=== PATIENT | male | born 1930 | race Caucasian/White ===

== ENCOUNTER 2017-11-28 23:59 | Inpatient (IN) | payer MEDICARE, MEDICAID ==
--- NOTE | 2017-11-29 00:44 | ED Physician Chart ---
ED Chief Complaint/HPI - Patient Information Date Seen:: 11/29/17 Time Seen:: 00:00 Chief Complaint:: back pain History of Present Illness:: 87 yr old male s/p fall 2 wks ago with wedge fx Allergies:: Allergies Allergy/AdvReac Type Severity Reaction Status Date / Time No Known Allergies Allergy Verified 11/29/17 00:18 Vitals:: Vital Signs - 8 hr 11/29/17 00:05 Temp 97.9 F HR 80 RR 16 BP 140/69 O2 Sat % 96 Historian:: Medical Records ED Review of Systems - Review of Systems General/Constitutional: No fever Skin: No skin lesions Head: No headache Eyes: No loss of vision ENT: No earache Neck: No neck pain Cardio Vascular: No chest pain Pulmonary: No SOB GI: No nausea G/U: No dysuria Musculoskeletal: Bone or joint pain, Muscle pain Endocrine: No polyuria Psychiatric: No prior psych history Hematopoietic: No lymphadenopathy Allergic/Immuno: No angioedema Neurological: No paresthesia (pt very angry appearing and demanding) ED Past Medical History - Past Medical History Obtainable: No Past Medical History: Arthritis Family History: Other Family Medical History - Family Member Mother History Unknown: Yes ED Septic Shock - <6hrs of presentation: Vital Signs: Vital Signs - 8 hr 11/29/17 00:05 Temp 97.9 F HR 80 RR 16 BP 140/69 O2 Sat % 96
[2017-11-29 01:19] LABS: % BASOPHILS 0.7 % (0.0-2.0); % EOSINOPHILS 2.6 % (0.0-5.0); % LYMPHOCYTES 18.5 % (20.0-50.0); % NEUTROPHILS 70.2 % (40.0-80.0); BASOPHILE ABSOLUTE 0.1 Th/cumm (0-0.2); EOSINOPHILE ABSOLUTE 0.2 Th/cmm (0.1-0.4); HEMATOCRIT 41.5 % (41.0-60); HEMOGLOBIN 13.8 gm/dL (12-16); LYMPHOCYTE ABSOLUTE 1.5 Th/cmm (1.5-3.0); MEAN CELL VOLUME 92.7 fl (80-99); MEAN CORPUSCULAR HEMOGLOBIN 30.8 pg (27.0-31.0); MEAN CORPUSCULAR HGB CONC 33.2 pg (28.0-36.0); MEAN PLATELET VOLUME 8.4 fl; MONOCYTE ABSOLUTE 0.7 Th/cmm (0.3-1.0); NEUTROPHILE ABSOLUTE 5.7 Th/cmm (1.8-8.0); PLATELET COUNT 293 Th/cmm (150-400); RED BLOOD COUNT 4.47 Mil/cmm (3.80-5.80); RED CELL DISTRIBUTION WIDTH 12.5 % (11.5-20.0); WHITE BLOOD COUNT 8.2 Th/cmm (4.8-10.8)
[2017-11-29 01:26] LABS: ALB/GLOB RATIO 1.3 (1.0-1.8); ALBUMIN 3.8 gm/dL (4.2-5.5); ALKALINE PHOSPHATASE 84 U/L (34-104); ANION GAP 12.8 (7.0-16.0); BILIRUBIN,TOTAL 0.7 mg/dL (0.3-1.0); BUN - UREA NITROGEN 16 mg/dL (7-25); CALCIUM SERUM 9.2 mg/dL (8.6-10.3); CARBON DIOXIDE 18.8 mEq/L (21.0-31.0); CHLORIDE 103 mEq/L (98-107); CREATININE - SERUM 0.7 mg/dL (0.7-1.3); GLUCOSE 145 mg/dL (70-105); POTASSIUM SERUM 3.6 mEq/L (3.5-5.1); SGOT 13 U/L (13-39); SGPT/ALT 13 U/L (7-52); SODIUM SERUM 131 mEq/L (136-145); TOTAL PROTEIN,SERUM 6.8 gm/dL (6.0-8.3)
[2017-11-29] MEDS ORDERED: Sodium Chloride 0.9% 1,000 ML IV ONE (02:13)
[2017-11-29 02:28] LABS: URINE MICROSCOPIC INDICATED? YES; URINE SOURCE CLEAN C
[2017-11-29 03:21] LABS: URINE BILIRUBIN NEGATIVE (NEGATIVE); URINE BLOOD NEGATIVE (NEGATIVE); URINE GLUCOSE (UA) 250 mg/dL (NEGATIVE); URINE KETONE NEGATIVE (NEGATIVE); URINE LEUKOCYTE ESTERASE NEGATIVE (NEGATIVE); URINE NITRATE NEGATIVE (NEGATIVE); URINE PROTEIN NEGATIVE (NEGATIVE); URINE UROBILINOGEN 0.2 E.U./dL (0.2 - 1.0)
[2017-11-29 03:33] LABS: URINE CLARITY CLEAR (CLEAR); URINE COLOR YELLOW
[2017-11-29 03:34] LABS: URINE BACTERIA NONE SEEN /hpf (NONE SEEN); URINE EPITHELIAL CELLS NONE SEEN /lpf (FEW); URINE RBC NONE SEEN /hpf (0-5); URINE WBC NONE SEEN /hpf (0-5)
[2017-11-29] MEDS ORDERED: Non-Formulary Item 1 EA (Acetaminophen [Acetaminophen Er] 650 MG) PO PRN ×2 (07:07)
[2017-11-29] MEDS ORDERED: Non-Formulary Item 1 EA (Ascorbate Calcium [Vitamin C] 500 MG) PO SCH (09:00)
[2017-11-29] MEDS: Calcium Carb/Vit D 500 mg/200 U Tab PO SCH (10:15)
[2017-11-29] MEDS: Hydrocodone/APAP 10 mg/325 mg Tab PO PRN ×2 (10:15→16:23)
--- NOTE | 2017-11-30 04:07 | History & Physical ---
ADMIT DATE: 11/29/2017 CHIEF COMPLAINT: Fall with severe low back pain. HISTORY OF PRESENT ILLNESS: The patient is an 87-year-old male admitted from the Emergency Room to telemetry floor of [facility] due to status post fall with a wedge compression fracture in the lumbar spine. I have not seen the official report on the computer yet, but this worrying information communicated by the ER physician to me. The patient is somewhat confused, agitated from time to time. He does have degenerative disk disease, degenerative joint disease, age-related chronic pain syndrome. Lab mondragon, his sodium is 131, blood sugar 145. PAST MEDICAL HISTORY: Includes degenerative joint disease, degenerative disk disease, hypertension, failure to thrive, weakness, hyperlipidemia, chronic pain syndrome, osteoporosis, constipation. PAST SURGICAL HISTORY: Denies significant past surgical history. MEDICATIONS: See medication reconciliation list. ALLERGIES: No known drug allergies. FAMILY HISTORY: Noncontributory per age. SOCIAL HISTORY: The patient smoked before, quit years ago. Denies alcohol or IV drug abuse. REVIEW OF SYSTEMS: As per HPI: GENERAL: Well-developed, thin male in no acute distress. SKIN: Warm and dry. Vital signs are basically stable. HEENT: Normocephalic, atraumatic. Pupils equal, round, react to light and accommodation. CHEST: Symmetrical. LUNGS: Clear to auscultation bilaterally. CARDIAC: Normal sinus rhythm. S1, S2. ABDOMEN: Benign, soft, nontender. EXTREMITIES: No clubbing, cyanosis or edema bilaterally . NEUROLOGIC: Unremarkable. LABORATORY DATA: Reviewed as seen from the computer significant for hyponatremia of sodium 131. ASSESSMENT AND PLAN: 1. Status post fall a week ago with progressive worsening of low back pain and radiographic evidence of wedge compression fracture: Orthopedic consultation request greatly appreciated and fall precaution be exercised. 2. Hyponatremia: Rule out syndrome of inappropriate antidiuretic hormone. 3. Chronic pain syndrome: Adjust pain medications as needed. 4. Degenerative joint disease and degenerative disk disease, age-related. 5. History of constipation and decubitus ulcer. 6. History of hypertension and hyperlipidemia. 7. DVT prophylaxis. JOB# [id number]
--- NOTE | 2017-11-30 08:07 | Diagnostic Imaging Report ---
Exam: Lumbar sacral spine HISTORY: Pain Findings: Multiple views of the lumbar sacral spine portably at 0107 hours reviewed, no prior studies available for comparison. The study demonstrates severe degenerative osteoporotic osteophytic changes with extensive compression fractures of the L3, L2, L1, and T12 vertebrae, acuity is is unknown. Degenerative osteoarthritic changes with narrowing of the L4-L5 L5-S1 intervertebral disc spaces are noted. There is calcification of abdominal aorta. Superimposed ileus is noted. IMPRESSION: Multiple level compression fractures throughout the lumbar spine Degenerative osteophytic changes, or osteoarthritic narrowing of the L4-L5 L5-S1 intervertebral disc spaces. Clinical correlation recommended.
[2017-11-30] MEDS: Lactobacillus Rhamnosus GG 15 Billion CFU CAP.SPRINK PO SCH (09:48)
[2017-11-30] MEDS: Multivitamin w/ Minerals Tab PO SCH (09:48)
[2017-11-30] MEDS: Lactulose 10 Gm/15 mL 30mL UDC PO SCH (09:48)
[2017-11-30] MEDS: Calcium Carb/Vit D 500 mg/200 U Tab PO SCH (09:48)
--- NOTE | 2017-11-30 18:57 | ED Physician Chart ---
ED Chief Complaint/HPI - Patient Information Date Seen:: 11/30/17 Time Seen:: 18:56 Allergies:: Allergies Allergy/AdvReac Type Severity Reaction Status Date / Time No Known Allergies Allergy Verified 11/29/17 00:18 I WAS REQUESTED BY THE HOUSE CHARGE NURSE TO WRITE A PRESCRIPTION FOR AN AGITATED PATIENT WHO IS STRIKING PEOPLE WITH HIS CANE AND PUNCHING PEOPLE. I EVALUATED THE PATIENT HE WAS AWAKE AND ALERT AND IN NO RESPIRATORY DISTRESS. I WENT AHEAD AND PUT IN AN ORDER FOR ATIVAN 0.5 MG IM NEEDED TO CONTROL HER COMBATIVE BEHAVIOR AND AGITATION. Family Medical History - Family Member Mother History Unknown: Yes ED Labs/Radiology/EKG Results - Lab Results Results: Laboratory Tests 11/29/17 11/29/17 11/29/17 00:50 00:50 01:20 WBC 8.2 RBC 4.47 Hgb 13.8 Hct 41.5 MCV 92.7 MCH 30.8 MCHC Differential 33.2 RDW 12.5 Plt Count 293 MPV 8.4 Neutrophils % 70.2 Lymphocytes % 18.5 L Monocytes % 8.0 Eosinophils % 2.6 Basophils % 0.7 Sodium 131 L Potassium 3.6 Chloride 103 Carbon Dioxide 18.8 L Anion Gap 12.8 BUN 16 Creatinine 0.7 Est GFR ( Amer) TNP Est GFR (Non-Af Amer) TNP BUN/Creatinine Ratio 22.9 Glucose 145 H Calcium 9.2 Total Bilirubin 0.7 AST 13 ALT 13 Alkaline Phosphatase 84 Total Protein 6.8 Albumin 3.8 L Globulin 3.0 Albumin/Globulin Ratio 1.3 Urine Source CLEAN C Urine Color YELLOW Urine Clarity CLEAR Urine pH 7.0 Ur Specific [place] 1.010 Urine Protein NEGATIVE Urine Glucose (UA) 250 H Urine Ketones NEGATIVE Urine Blood NEGATIVE Urine Nitrate NEGATIVE Urine Bilirubin NEGATIVE Urine Urobilinogen 0.2 Ur Leukocyte Esterase NEGATIVE Urine RBC NONE SEEN Urine WBC NONE SEEN Ur Epithelial Cells NONE SEEN Urine Bacteria NONE SEEN ED Septic Shock - . Is Septic Shock (SBP<90, OR Lactate>4 mmol\L) present?: No ED Discharge Plan - Patient Disposition Admit/Discharge/Transfer: Acute Care w/in this hosp
--- NOTE | 2017-12-01 05:09 | Progress Notes ---
DATE: 11/30/2017 SUBJECTIVE: The patient was very confused, agitated earlier. OBJECTIVE: VITAL SIGNS: Basically stable. HEENT: Normocephalic, atraumatic. Pupils equal, round, reactive to light and accommodation. CHEST: Symmetrical. LUNGS: Basically clear to auscultation bilaterally. HEART: Normal sinus rhythm, S1 and S2. ABDOMEN: Benign, soft, nontender. EXTREMITIES: No clubbing, cyanosis, or edema. NEUROLOGIC: Unremarkable. DIAGNOSTIC STUDIES: X-ray of lumbar spine revealed multiple level compression fractures throughout the lumbar spine. ASSESSMENT AND PLAN: 1. Altered level of consciousness due to metabolic encephalopathy, dementia. 2. Agitation: Observe closely. 3. Noncompliance: Education provided with some effect. 4. Status post fall with multiple compression fracture in the lumbar spine. 5. Hyponatremia: We will repeat BMP in the morning. 6. Chronic pain syndrome: Multifactorial. 7. History of constipation and decubitus ulcer. 8. Hypertension, improving. 9. Hyperlipidemia. 10. DVT prophylaxis. JOB# [id number]
--- NOTE | 2017-12-01 07:33 | Consultation ---
DATE OF CONSULTATION: 12/01/2017 PSYCHIATRIC CONSULT PATIENT'S AGE: 87. SEX: Male. PHYSICIAN: Dr. Chavez. WAIST FITTER: Elias Kim MD, MPH TYPE OF THE REPORT: Psychiatric consult. REASON FOR THE CONSULT: Agitation and uncooperative. HISTORY OF PRESENT ILLNESS: The patient is an 87-year-old male who was admitted to the hospital and the patient has not been cooperative with the staff and has been agitated and refusing to have IV placed order to take medications to get his blood drawn. The patient was admitted with status post fall with wedge compression fracture in the lumbar spine. The patient has been easily agitated and in irritable and angry mood. He also has episodes of aggression and wants to be left alone. PAST PSYCHIATRIC HISTORY: Noncontributory. PAST MEDICAL HISTORY: The patient beside back injury, he also has hyponatremia, chronic pain syndrome, degenerative joint disease, history of constipation and decubitus ulcer, history of hypertension and hyperlipidemia, and DVT prophylaxis. SOCIAL HISTORY: The patient lives in a custodial in [place]. No known alcohol or drug use. MENTAL STATUS EXAM: The patient appears his stated age. Anxious. Irritable mood. Uncooperative. Thought processes are with poverty of speech. The patient does answer questions regarding hallucinations or delusions. The patient did not answer questions regarding suicide or homicide. The patient is alert, but seems to be disoriented to time, place, person, and situation. Impaired immediate, recent and remote memories and unable to evaluate this correctly because of his agitation and confusion. ASSESSMENT: Unspecified psychosis. TREATMENT AND PLAN: We will start the patient on Haldol liquid for better compliance for the time being and only for 1 week and then we will stop, when the patient is less agitated and more cooperative. Also, we will monitor his behavior for further recommendations. Thanks to Dr. Chavez and will follow up with you. JOB# [id number]
[2017-12-01] MEDS: Calcium Carb/Vit D 500 mg/200 U Tab PO SCH (10:16)
[2017-12-01] MEDS: Lactobacillus Rhamnosus GG 15 Billion CFU CAP.SPRINK PO SCH (10:16)
[2017-12-01] MEDS: Lactulose 10 Gm/15 mL 30mL UDC PO SCH (10:17)
[2017-12-01] MEDS: Multivitamin w/ Minerals Tab PO SCH (10:17)
[2017-12-01] MEDS: Hydrocodone/APAP 10 mg/325 mg Tab PO PRN (16:43)
[2017-12-01] MEDS: Haldol Oral Sol.(concentrate) 10 mg/5 mL Udc PO SCH ×2 (18:09→18:10)
--- NOTE | 2017-12-01 23:32 | Progress Notes ---
DATE: 12/01/2017 SUBJECTIVE: The patient is noncompliant, confused, agitated. OBJECTIVE: VITAL SIGNS: Basically stable. HEENT: Normocephalic, atraumatic. Pupils equal, round, react to light and accommodation. CHEST: Symmetrical. LUNGS: Clear to auscultation bilaterally. HEART: Normal sinus rhythm. S1, S2. ABDOMEN: Benign, soft, nontender. EXTREMITIES: No clubbing, cyanosis or edema bilaterally . NEUROLOGIC: Unremarkable. LABORATORY DATA: Reviewed. ASSESSMENT AND PLAN: 1. Noncompliance, education provided. 2. Severe agitation from time to time: Psychiatrist consultation and Haldol p.r.n. ordered. 3. Altered level of consciousness on and off due to metabolic encephalopathy and dementia. 4. Status post fall with compression fracture in the lumbar spine. 5. Hyponatremia: Repeat BMP in the morning. 6. Chronic pain syndrome: Multifactorial. 7. History of hyperlipidemia and hypertension. 8. DVT prophylaxis. 9. Discharge planning. JOB# [id number]
[2017-12-02] MEDS: Multivitamin w/ Minerals Tab PO SCH (09:40)
[2017-12-02] MEDS: Lactobacillus Rhamnosus GG 15 Billion CFU CAP.SPRINK PO SCH (09:40)
[2017-12-02] MEDS: Haldol Oral Sol.(concentrate) 10 mg/5 mL Udc PO SCH (09:40)
[2017-12-02] MEDS: Calcium Carb/Vit D 500 mg/200 U Tab PO SCH (09:40)
[2017-12-02] MEDS: Lactulose 10 Gm/15 mL 30mL UDC PO SCH (09:40)
--- NOTE | 2017-12-02 12:13 | Progress Notes ---
DATE: SUBJECTIVE: Chart reviewed and the patient interviewed. Also discussed the patient's condition with the staff and reviewed records and labs. The patient is calm and he seems to be less irritable and less agitated since he is taking Ativan on a p.r.n. basis. The patient also started easier to redirect him. Also, he could take Haldol 2 mg twice a day, which seems to calm the patient down. Otherwise, the patient has no side effects of Haldol. ASSESSMENT: The patient is less agitated. TREATMENT PLAN: Continue monitoring his behavior and continue to follow up closely. JOB# [id number]
--- NOTE | 2017-12-02 18:00 | Consultation ---
DATE OF CONSULTATION: 12/02/2017 ORTHOPEDIC SURGERY CONSULTATION HISTORY OF PRESENT ILLNESS: The patient is an 87-year-old gentleman admitted to [facility] via the Emergency Room on 11/29/2017 with a history of having fallen and having compression fractures in his back. He has been worked up and treated for his medical issues. I was called in orthopedic consultation by the admitting physician regarding his vertebral fractures. PAST HISTORY: I cannot get much information from the patient even with a product line manager and the record indicates that he has a history of chronic pain, hypertension, arthritis. SURGERY HISTORY: Unknown. FAMILY HISTORY: Noncontributory. SOCIAL HISTORY: The patient is a resident in a care facility and we do not have the name of it here. PHYSICAL EXAMINATION: The patient was examined in his hospital room in [facility]. When I entered the room, he was standing near the bed, fully dressed and asking to leave. I asked whether he had pain anywhere and he said no. I asked specifically about back pain and he swept his hand around the right side of his lumbar region. Gait was normal. Lumbar range of motion, I got him to move through 50-60% of normal movement. Flexion was mainly in the hips. Percussion along the spinous processes, nonproductive of pain. Neurologic exam in the lower extremities: Straight leg raising within normal limits (he is stiff and tight considering his age of 87). IMAGING STUDIES: I viewed x-rays in the PACS lumbar spine. There are compression fracture deformities of multiple vertebrae located here involving primarily T12, L1, L2 and L3. There are attendant degenerative changes throughout with disk space narrowing and sclerosis at L4-L5 and L5-S1. The lumbar lordotic curve is reversed because of the collapse of the vertebrae, more so in the anterior column. ORTHOPEDIC DIAGNOSIS: Lumbar compression fractures as above. These fractures appear healed and stable. The patient is not having acute pain there with movement or with moderate percussion over the involved vertebrae. There does not appear to be nerve root involvement. Recommended treatment. He could have local symptomatic treatment of heat, massage, analgesic balm when needed. He might benefit from NSAIDs from time to time as well as mild analgesics. There is no need for active orthopedic intervention at this point. Thank you for this interesting referral. JOB# [id number]
--- NOTE | 2017-12-02 21:57 | Discharge Summary ---
DATE OF DISCHARGE: 12/02/2017 FINAL DIAGNOSES: 1. Status post fall with compression fracture in the lumbar spine, but cleared by orthopedic surgeon risk management consultant. 2. Anxiety and agitation, improved. 3. History of mild psychosis. 4. Altered level of consciousness, improved. 5. Chronic pain syndrome stabilized. 6. Hyponatremia, but the patient has refused to repeat the blood test. HOSPITAL COURSE: The patient is an 87-year-old male admitted due to status post fall with compression fracture of the lumbar spine. The patient was confused and agitated from time to time. Orthopedics consultation requested and cleared the patient for discharge. For the hyponatremia, the patient had refused any workup or even repeat blood test and he was accepted back to retirement. DISCHARGE CONDITION: Stable. DISPOSITION: [facility]. DISCHARGE MEDICATIONS: Continue medication from [facility].. DIET: Cardiac, soft diet. ACTIVITY: Bed rest with physical therapy. FOLLOWUP: One week. JOB# [id number]
== END 2017-12-02 14:45 | DRG 551 ==
LOC: ER 23:59 → MSI 11-29 07:02
PROVIDERS: ADMIT Internal Medicine; ATTEND Internal Medicine
DX: S32.030A Wedge compression fracture of third lumbar vertebra, initial encounter for closed fracture (principal); G93.41 Metabolic encephalopathy; E87.1 Hypo-osmolality and hyponatremia; S22.080A Wedge compression fracture of T11-T12 vertebra, initial encounter for closed fracture; S32.010A Wedge compression fracture of first lumbar vertebra, initial encounter for closed fracture; S32.020A Wedge compression fracture of second lumbar vertebra, initial encounter for closed fracture; G89.4 Chronic pain syndrome; L89.90 Pressure ulcer of unspecified site, unspecified stage; M19.90 Unspecified osteoarthritis, unspecified site; I10 Essential (primary) hypertension; E78.5 Hyperlipidemia, unspecified; M81.0 Age-related osteoporosis without current pathological fracture; Z87.891 Personal history of nicotine dependence; W18.39XA Other fall on same level, initial encounter; Y93.89 Activity, other specified; Y92.89 Other specified places as the place of occurrence of the external cause; Y99.8 Other external cause status; Z91.19 Patient's noncompliance with other medical treatment and regimen; F29 Unspecified psychosis not due to a substance or known physiological condition
CPT/HCPCS: 36415-UA; 72110-TC; 80053-TC; 81001-TC; 85025-TC; J2060; J7030; Z7610